=== PATIENT | female | born 1975 | race Caucasian/White ===

== ENCOUNTER 2019-07-14 15:18 | Emergency (ER) | payer SELFPAY ==
--- NOTE | 2019-07-14 15:57 | Event Note ---
ED Screening Note Date of service: 07/14/19 Time: 15:55 ED Screening Note: Pt complains of vaginal/buttock rash x yesterday burning and itching This initial assessment/diagnostic orders/clinical plan/treatment(s) is/are subject to change based on patients health status, clinical progression and re- assessment by fellow clinical providers in the ED. Further treatment and workup at subsequent clinical providers discretion. Patient/guardian urged not to elope from the ED as their condition may be serious if not clinically assessed and managed. Initial orders include: ACC
[2019-07-14 15:58] VITALS: BP 149/80
[2019-07-14] MEDS ORDERED: IBUPROFEN 600 MG TAB PO ONE (21:19)
[2019-07-14] MEDS ORDERED: valACYclovir 500 MG TAB PO ONE (21:19)
[2019-07-14] MEDS ORDERED: LIDOCAINE 2% UROJECT 10 ML JELLY UR ONE (21:19)
[2019-07-14] MEDS ORDERED: LIDOCAINE JELLY (2%) 5 ML TOPICAL ONE (21:22)
--- NOTE | 2019-07-14 23:14 | Emergency Department Report ---
ED Female HPI - General Chief complaint: Urogenital-Female Stated complaint: RASH Time Seen by Provider: 07/14/19 15:55 Source: patient Mode of arrival: Ambulatory Limitations: No Limitations - History of Present Illness Initial comments: Patient is a 44-year-old Citizen Of [place] female with a history of chronic genital herpes with occasional leg the ED with complaint of acute onset persistent painful burning erythematous ulcerated lesions in the perineal and labia minora for the last 2 days. Patient denies abdominal pain, fever, chills, nausea, vomiting, fever, chills, vaginal discharge, dysuria or urinary frequency and urgency and low back pain. MD Complaint: possible STD, other (painful vaginal and perineal lesions) -: Sudden, days(s) (2) Location: labia, perineum, other (vaginal) Radiation: non-radiating Severity: moderate Severity scale (0 -10): 5 Quality: sharp, burning, aching Consistency: constant Improves with: none Worsens with: movement Are you Now?: No Last Menstrual Period: 07/11/19 EDC: 04/16/20 Associated Symptoms: denies other symptoms, rash (painful ulcerated erythematous lesions in the perineum and labia minor). denies: vaginal discharge, vaginal bleeding, abdominal pain, nausea/vomiting, fever/chills, headaches, loss of appetite, dysuria, hematuria, seizure, shortness of breath, syncope, weakness, other - Related Data Sexually active: Yes : 4 Para: 4 A: 0 Previous Rx's Medication Instructions Recorded Last Taken Type Acyclovir 400 mg PO Q8H #30 tablet 07/14/19 Unknown Rx Acyclovir [Acyclovir Ointment] 1 applicatio TP 5XD #1 tube 07/14/19 Unknown Rx Ibuprofen [Motrin] 800 mg PO Q8HR PRN #24 tablet 07/14/19 Unknown Rx Allergies Allergy/AdvReac Type Severity Reaction Status Date / Time acetaminophen AdvReac Anaphylaxis Verified 03/30/16 16:45 [From Darvocet-N] propoxyphene napsylate AdvReac Anaphylaxis Verified 03/30/16 16:45 [From Darvocet-N] ED Review of Systems ROS: Stated complaint: RASH Other details as noted in HPI Constitutional: denies: chills, fever Eyes: denies: eye pain, eye discharge, vision change ENT: denies: ear pain, throat pain Respiratory: denies: cough, shortness of breath, wheezing Cardiovascular: denies: chest pain, palpitations Endocrine: no symptoms reported Gastrointestinal: denies: abdominal pain, nausea, diarrhea Genitourinary: other (ulcerated vaginal lesions with pain). denies: urgency, dysuria, discharge Musculoskeletal: denies: back pain, joint swelling, arthralgia Skin: other (painful erythematous ulcerated vaginal lesions). denies: rash, lesions Neurological: denies: headache, weakness, paresthesias Psychiatric: denies: anxiety, depression Hematological/Lymphatic: denies: easy bleeding, easy bruising ED Past Medical Hx - Surgical History Hx Cholecystectomy: Yes Additional Surgical History: tubal 2000 - Social History Smoking Status: Current Every Day Smoker Substance Use Type: None - Medications Home Medications: Home Medications Medication Instructions Recorded Confirmed Last Taken Type Acyclovir 400 mg PO Q8H #30 tablet 07/14/19 Unknown Rx Acyclovir [Acyclovir Ointment] 1 applicatio TP 5XD #1 tube 07/14/19 Unknown Rx Ibuprofen [Motrin] 800 mg PO Q8HR PRN #24 tablet 07/14/19 Unknown Rx ED Physical Exam - General Limitations: No Limitations General appearance: alert, in no apparent distress - Head Head exam: Present: atraumatic, normocephalic, normal inspection - Eye Eye exam: Present: normal appearance, PERRL, EOMI Pupils: Present: normal accommodation - ENT ENT exam: Present: normal exam, normal orophraynx, mucous membranes moist, TM's normal bilaterally, normal external ear exam - Neck Neck exam: Present: normal inspection, full ROM - Respiratory Respiratory exam: Present: normal lung sounds bilaterally. Absent: respiratory distress, wheezes, rhonchi, chest wall tenderness, accessory muscle use, decreased breath sounds, prolonged expiratory - Cardiovascular Cardiovascular Exam: Present: regular rate, normal rhythm, normal heart sounds. Absent: systolic murmur, diastolic murmur, rubs, gallop - GI/Abdominal GI/Abdominal exam: Present: soft, normal bowel sounds. Absent: tenderness, guarding, hyperactive bowel sounds, hypoactive bowel sounds, mass - External exam: Present: erythema (erythematous ulcerated vesicular tender vaginal and perineal lesions), lesions (ulcerated erythematous tender perineal and vaginal lesions) Bi-manual exam: Present: other (female RN trailer steerer present during the pelvic exam) - Extremities Exam Extremities exam: Present: normal inspection, full ROM, normal capillary refill - Back Exam Back exam: Present: normal inspection, full ROM. Absent: muscle spasm, paraspinal tenderness - Neurological Exam Neurological exam: Present: alert, oriented X3, CN II-XII intact, normal gait, reflexes normal - Psychiatric Psychiatric exam: Present: normal affect, normal mood - Skin Skin exam: Present: warm, dry, intact, normal color, rash (ulcerated vesicular erythematous tender perineal and vaginal lesions), vesicles ED Course Vital Signs 07/14/19 07/14/19 15:56 22:20 Temperature 98.3 F Pulse Rate 75 Respiratory 16 16 Rate Blood Pressure 149/80 O2 Sat by Pulse 99 Oximetry ED Medical Decision Making - Medical Decision Making This is a 44-year-old female who presented to the ED with painful vaginal and perineal vesicular ulcerated erythematous lesions. In the ED, patient is alert and oriented 3 and is not in distress. Physical exam confirms the presence of significant erythematous ulcerated vesicular tender vaginal lesions in the perineal and labia minora. Patient was treated for pain in the ED and also given initial oral Valtrex 1 g by mouth 1. Patient left the ED AMA without taking her antiviral prescriptions. - Differential Diagnosis Vaginal lesions; Genital herpes; UTI; STD Critical care attestation.: If time is entered above; I have spent that time in minutes in the direct care of this critically ill patient, excluding procedure time. ED Disposition Clinical Impression: Genital herpes Qualifiers: Herpes simplex infection site: vulvovaginitis Qualified Code(s): A60.04 - Herpesviral vulvovaginitis Disposition: - TO HOME OR SELFCARE Is pt being admited?: No Does the pt Need Aspirin: No Condition: Stable Instructions: Genital Herpes Simplex (ED) Additional Instructions: Take medications with food, drink plenty of fluids and follow-up with your primary care physician or OUTREACH REPRESENTATIVE physician in 7-10 days for reevaluation. Return to the ED immediately if symptoms get worse. Prescriptions: Acyclovir 400 mg PO Q8H #30 tablet Acyclovir [Acyclovir Ointment] 1 applicatio TP 5XD #1 tube Ibuprofen [Motrin] 800 mg PO Q8HR PRN #24 tablet PRN Reason: Pain , Severe (7-10) Referrals: [facility], [place] Depart [Outside] - 3-5 Days Time of Disposition: 23:12 Print Language: [id number]
[2019-07-14 23:28] LABS: Bacteria,Urine 1+ /HPF (Negative); Bilirubin,Urine NEG (Negative); Blood,Urine NEG (Negative); Color,Urine Yellow (Yellow); Mucus,Urine FEW /HPF; Protein,Urine <15 mg/dL mg/dL (Negative); Urobilinogen,Urine < 2.0 mg/dL (<2.0)
[2019-07-14 23:30] LABS: HCG Qualitative,Urine Negative (Negative)
== END 2019-07-14 23:28 | disposition left against medical advice (07) ==
LOC: ED 15:18
DX: A60.04 Herpesviral vulvovaginitis (principal); F17.200 Nicotine dependence, unspecified, uncomplicated; Z90.49 Acquired absence of other specified parts of digestive tract; Z98.51 Tubal ligation status; Z79.899 Other long term (current) drug therapy; Z88.8 Allergy status to other drugs, medicaments and biological substances
CPT/HCPCS: 81001; 81025